=== PATIENT | female | born 1955 | race African-American/Black ===

== ENCOUNTER 2023-04-15 23:19 | Inpatient (IN) | payer MEDICARE, MEDICAID ==
[~2023-04-15] VITALS: Ht 162.6 cm; Wt 49.9 kg
[2023-04-15] MEDS ORDERED: RISPERIDONE 1MG TABLET PO ONE (23:30)
[2023-04-15] MEDS ORDERED: SODIUM CHLORIDE 0.9% 1,000 ML IV ONE (23:30)
[2023-04-15] MEDS ORDERED: ALPRAZOLAM 0.25 MG TABLET PO ONE (23:30)
[2023-04-16 00:02] LABS: BASOPHILS % 0.4 % (0.0-2.0); EOSINOPHILS % 2.6 % (0.0-5.0); HEMOGLOBIN. 9.6 g/dL (12.0-16.0); LYMPHOCYTES % 36.2 % (20.0-50.0); MEAN CORPUSCULAR HEMOGLOBIN 26.5 pg (28.0-32.0); MEAN CORPUSCULAR HGB CONC 31.9 g/dL (31.0-37.0); MEAN CORPUSCULAR VOLUME 83.2 fL (81.0-99.0); MEAN PLATELET VOLUME 6.8 fl (7.4-10.4); MONOCYTES % 8.9 % (2.0-8.0); NEUTROPHILS % 51.9 % (40.0-76.0); PLATELET 617 x1000/uL (130-400); RED BLOOD CELL COUNT 3.61 mill/uL (4.2-5.4); RED CELL DISTRIBUTION WIDTH 18.1 % (11.6-14.6); WHITE BLOOD COUNT 6.9 x1000/uL (4.5-11.0)
[2023-04-16 00:18] LABS: CHLORIDE 113 mEq/L (98-107); INDEX HEMOLYSI 1 (1-3); INDEX ICTERIC 1 (1-4); INDEX LIPEMIC 1 (1-3); POTASSIUM 3.6 mEq/L (3.5-5.1); SODIUM 142 mEq/L (136-145)
[2023-04-16 00:21] LABS: AMMONIA 13 uMol/L (<32)
[2023-04-16 00:24] LABS: ALANINE AMINOTRANSFERASE 10 IU/L (13-61); ALBUMIN 2.4 g/dL (3.4-5.0); ASPARTATE AMINOTRANSFERASE 10 IU/L (15-37); CALCIUM 8.4 mg/dL (8.5-10.1); CARBON DIOXIDE 26 mEq/L (21-32); ETHANOL BLOOD < 10 mg/dL (<10); GLUCOSE 86 mg/dL (70-105); UREA NITROGEN BLOOD 12 mg/dL (7-21)
[2023-04-16 00:28] LABS: ACETAMINOPHEN < 2 ug/mL (10-30); BILIRUBIN TOTAL 0.3 mg/dL (0.1-1.0); CREATINE KINASE 27 IU/L (26-192); CREATININE 0.4 mg/dL (0.6-1.3); PROTEIN TOTAL 6.7 g/dL (6.0-8.3)
[2023-04-16 00:44] LABS: TROPONIN I HIGH SENSITIVITY < 4 ng/L (<54)
[2023-04-16 08:00] VITALS: BP 95/51; PULSE 66; RESP 16; TEMP 96.6
[2023-04-16 08:30] VITALS: BP 95/51; PULSE 66; RESP 16; TEMP 96.6
[2023-04-16] MEDS ORDERED: IPRATROPIUM/ALBUTEROL 0.5-3(2.5)MG/3ML NEB HHN PRN (10:30)
[2023-04-16] MEDS ORDERED: CLONIDINE 0.1MG TABLET PO PRN (10:30)
[2023-04-16 12:00] VITALS: BP 101/37; PULSE 60; RESP 16; TEMP 96.5
[2023-04-16] MEDS: PANTOPRAZOLE SODIUM 40 MG/VIAL IV SCH (12:45)
[2023-04-16] MEDS: SODIUM CHLORIDE 0.9% 1,000 ML IV SCH (12:52)
[2023-04-16] MEDS: CEFTRIAXONE 1,000 MG in DEXTROSE 5% WATER 50 ML IV SCH (12:52)
[2023-04-16 16:00] VITALS: BP 90/35; PULSE 69; RESP 16; TEMP 97.1
[2023-04-16] MEDS ORDERED: CLON0.1T PO (18:28)
[2023-04-16] MEDS ORDERED: MULT-1146 MT (18:28)
[2023-04-16] MEDS ORDERED: RISP2 PO (18:28)
[2023-04-16] MEDS ORDERED: TOPUD PO (18:28)
[2023-04-16] MEDS ORDERED: LORA-250 MT (18:28)
[2023-04-16] MEDS ORDERED: ONDA4TAB11 PO (18:28)
[2023-04-16] MEDS ORDERED: ACETAMINOPHEN 325MG TABLET PO PRN (18:30)
[2023-04-16] MEDS ORDERED: ONDANSETRON 4MG ODT PO SCH (18:30)
[2023-04-16] MEDS ORDERED: LORAZEPAM 1MG TABLET PO PRN (18:30)
[2023-04-16] MEDS ORDERED: CLONIDINE 0.1MG TABLET PO SCH (18:30)
[2023-04-16 20:00] VITALS: TEMP 97.1
[2023-04-16] MEDS: RISPERIDONE 1MG TABLET PO SCH ×2 (21:00→21:05)
[2023-04-17] MEDS: SODIUM CHLORIDE 0.9% 1,000 ML IV SCH ×2 (00:34→12:45)
[2023-04-17 08:00] VITALS: BP 111/51; PULSE 63; RESP 18; TEMP 97.7
[2023-04-17] MEDS: ENOXAPARIN 40MG/0.4ML SYR SUBCUT SCH ×2 (09:00→10:02)
[2023-04-17] MEDS: PANTOPRAZOLE SODIUM 40 MG/VIAL IV SCH ×2 (09:00→10:01)
[2023-04-17] MEDS ORDERED: MEDICATION NOT ON FORMULARY EA (Multivitamin (Multi Vitamin Daily) 1 TAB) MT SCH (09:00)
[2023-04-17] MEDS: RISPERIDONE 1MG TABLET PO SCH ×2 (10:01→20:51)
[2023-04-17] MEDS: MULTIVITAMINS,THER W-MINERALS TABLET PO SCH (10:01)
[2023-04-17 12:00] VITALS: BP 101/52; PULSE 71; RESP 18; TEMP 97.9
[2023-04-17] MEDS: CEFTRIAXONE 1,000 MG in DEXTROSE 5% WATER 50 ML IV SCH (12:45)
[2023-04-17 16:00] VITALS: BP 99/55; PULSE 63; RESP 18; TEMP 97.4
[2023-04-17 20:00] VITALS: BP 125/43; PULSE 70; RESP 16; TEMP 97.1
[2023-04-18] VITALS: BP 106/43; PULSE 50; RESP 16; TEMP 97.3
[2023-04-18] MEDS: SODIUM CHLORIDE 0.9% 1,000 ML IV SCH ×2 (02:10→15:42)
[2023-04-18 04:00] VITALS: BP 121/64; PULSE 66; RESP 18; TEMP 97.1
[2023-04-18 08:00] VITALS: BP 138/74; PULSE 61; RESP 16; TEMP 96.8
[2023-04-18] MEDS: ENOXAPARIN 40MG/0.4ML SYR SUBCUT SCH (08:32)
[2023-04-18] MEDS: MULTIVITAMINS,THER W-MINERALS TABLET PO SCH (08:32)
[2023-04-18] MEDS: PANTOPRAZOLE SODIUM 40 MG/VIAL IV SCH (08:32)
[2023-04-18] MEDS: RISPERIDONE 1MG TABLET PO SCH ×2 (08:35→20:39)
[2023-04-18 08:38] LABS: BASOPHILS % 0.2 % (0.0-2.0); EOSINOPHILS % 1.2 % (0.0-5.0); HEMATOCRIT. 36.5 % (36.0-48.0); HEMOGLOBIN. 11.5 g/dL (12.0-16.0); LYMPHOCYTES % 20.7 % (20.0-50.0); MEAN CORPUSCULAR HEMOGLOBIN 27.1 pg (28.0-32.0); MEAN CORPUSCULAR HGB CONC 31.5 g/dL (31.0-37.0); MEAN PLATELET VOLUME 8.5 fl (7.4-10.4); MONOCYTES % 7.3 % (2.0-8.0); NEUTROPHILS % 70.6 % (40.0-76.0); PLATELET 318 x1000/uL (130-400); RED BLOOD CELL COUNT 4.24 mill/uL (4.2-5.4); RED CELL DISTRIBUTION WIDTH 17.9 % (11.6-14.6); WHITE BLOOD COUNT 6.6 x1000/uL (4.5-11.0)
[2023-04-18 09:12] LABS: CALCIUM 8.3 mg/dL (8.5-10.1); CARBON DIOXIDE 23 mEq/L (21-32); CHLORIDE 112 mEq/L (98-107); CREATININE 0.4 mg/dL (0.6-1.3); GLUCOSE 71 mg/dL (70-105); INDEX HEMOLYSI 1 (1-3); INDEX ICTERIC 1 (1-4); INDEX LIPEMIC 1 (1-3); POTASSIUM 3.5 mEq/L (3.5-5.1); SODIUM 140 mEq/L (136-145)
[2023-04-18 09:18] LABS: UREA NITROGEN BLOOD 6 mg/dL (7-21)
[2023-04-18] MEDS: CEFTRIAXONE 1,000 MG in DEXTROSE 5% WATER 50 ML IV SCH (11:37)
[2023-04-18 12:00] VITALS: BP 108/75; PULSE 53; RESP 15; TEMP 97
[2023-04-18 16:00] VITALS: BP 119/56; PULSE 78; RESP 17; TEMP 97.6
[2023-04-18 20:00] VITALS: BP 115/83; PULSE 74; RESP 16; TEMP 97.3
[2023-04-19] VITALS: BP 123/52; PULSE 69; RESP 16; TEMP 97.7
[2023-04-19 04:00] VITALS: BP 136/57; PULSE 66; RESP 16; TEMP 98.1
[2023-04-19] MEDS: SODIUM CHLORIDE 0.9% 1,000 ML IV SCH (06:10)
[2023-04-19 08:00] VITALS: BP 135/67; PULSE 66; RESP 18; TEMP 98
[2023-04-19] MEDS: MULTIVITAMINS,THER W-MINERALS TABLET PO SCH (08:47)
[2023-04-19] MEDS: RISPERIDONE 1MG TABLET PO SCH (08:47)
[2023-04-19] MEDS: PANTOPRAZOLE SODIUM 40 MG/VIAL IV SCH (08:47)
[2023-04-19] MEDS: ENOXAPARIN 40MG/0.4ML SYR SUBCUT SCH ×2 (08:48→09:00)
[2023-04-19 12:00] VITALS: BP 129/76; PULSE 67; RESP 18; TEMP 97
[2023-04-19] MEDS: CEFTRIAXONE 1,000 MG in DEXTROSE 5% WATER 50 ML IV SCH (12:27)
[2023-04-19 12:53] VITALS: BP 129/76; PULSE 67; TEMP 97; O2SAT 96
== END 2023-04-19 15:10 | DRG 52 ==
LOC: ER 23:19 → MICUSO 04-16 03:09 → EDBEDREQTM 04-16 03:14 → EDBEDREQ 04-16 03:14 → 8WST 04-16 08:15
PROVIDERS: ADMIT Internal Medicine; ATTEND Internal Medicine
DX: G93.41 Metabolic encephalopathy (principal); N17.9 Acute kidney failure, unspecified; L89.156 Pressure-induced deep tissue damage of sacral region; E46 Unspecified protein-calorie malnutrition; T81.30XA Disruption of wound, unspecified, initial encounter; F31.9 Bipolar disorder, unspecified; F20.9 Schizophrenia, unspecified; I10 Essential (primary) hypertension; J44.9 Chronic obstructive pulmonary disease, unspecified; Y84.8 Other medical procedures as the cause of abnormal reaction of the patient, or of later complication, without mention of misadventure at the time of the procedure; Y92.89 Other specified places as the place of occurrence of the external cause; D64.9 Anemia, unspecified; R62.7 Adult failure to thrive; Z68.1 Body mass index [BMI] 19.9 or less, adult
CPT/HCPCS: 36415; 71045; 80048; 80053; 80307; 80320; 80329; 82140; 82550; 82962; 83605; 84443; 84484; 85025; 99285; C9113; J0696; J1650; J7030; J7060; G0480

== ENCOUNTER 2024-01-10 10:01 | Inpatient (IN) | payer MEDICARE, MEDICAID ==
[~2024-01-10] VITALS: Ht 167.6 cm; Wt 58.5 kg
[~2024-01-10 10:01] MED LIST: CLON0.1T PO; LORA-250 MT; MULT-1146 MT; ONDA4TAB11 PO; RISP2 PO; TOPUD PO
[2024-01-10] MEDS ORDERED: VANCOMYCIN 1G PREMIX 200 ML IV ONE (11:15)
[2024-01-10] MEDS: PIPERACILLIN/TAZO 3.375G/50ML 50 ML IV ONE (11:44)
[2024-01-10] MEDS: SODIUM CHLORIDE 0.9% 1000ML BAG (SEPSIS BOLUS) IV ONE (11:44)
[2024-01-10 11:52] LABS: CHLORIDE 105 mEq/L (98-107); POTASSIUM 4.3 mEq/L (3.5-5.1); SODIUM 139 mEq/L (136-145)
[2024-01-10 11:53] LABS: CARBON DIOXIDE 29 mEq/L (21-32)
[2024-01-10 11:54] LABS: CALCIUM 8.9 mg/dL (8.7-10.4)
[2024-01-10 11:55] LABS: BASOPHILS % 0.2 % (0.0-2.0); EOSINOPHILS % 6.5 % (0.0-5.0); HEMATOCRIT. 31.7 % (36.0-48.0); HEMOGLOBIN. 10.1 g/dL (12.0-16.0); LYMPHOCYTES % 28.6 % (20.0-50.0); MEAN CORPUSCULAR HEMOGLOBIN 27.2 pg (28.0-32.0); MEAN CORPUSCULAR HGB CONC 31.8 g/dL (31.0-37.0); MEAN CORPUSCULAR VOLUME 85.5 fL (81.0-99.0); MEAN PLATELET VOLUME 7.2 fl (7.4-10.4); MONOCYTES % 13.2 % (2.0-8.0); NEUTROPHILS % 51.5 % (40.0-76.0); PLATELET 370 x1000/uL (130-400); RED BLOOD CELL COUNT 3.71 mill/uL (4.2-5.4); RED CELL DISTRIBUTION WIDTH 17.5 % (11.6-14.6); WHITE BLOOD COUNT 5.7 x1000/uL (4.5-11.0)
[2024-01-10 11:58] LABS: CREATININE 0.4 mg/dL (0.6-1.0); GLUCOSE 79 mg/dL (70-105)
[2024-01-10 11:59] LABS: UREA NITROGEN BLOOD 5 mg/dL (9-23)
[2024-01-10] MEDS ORDERED: DIPHENHYDRAMINE 50MG/ML VIAL IV ONE (12:00)
[2024-01-10 12:01] LABS: ALANINE AMINOTRANSFERASE 8 IU/L (10-49); ALBUMIN 3.6 g/dL (3.2-4.8); ASPARTATE AMINOTRANSFERASE 13 IU/L (<34); BILIRUBIN TOTAL 0.2 mg/dL (0.1-1.0); PROTEIN TOTAL 6.4 g/dL (6.0-8.3)
[2024-01-10 12:03] LABS: PROTHROMBIN TIME 10.9 sec (9.6-11.0)
[2024-01-10 12:07] LABS: BILIRUBIN DIRECT < 0.1 mg/dL (<=3.0); TROPONIN I HIGH SENSITIVITY < 4 ng/L (3.0-34)
[2024-01-10] MEDS: LINEZOLID 600 MG PREMIX 300 ML IV SCH (12:30)
[2024-01-10] MEDS: MORPHINE SULFATE 4 MG/ML INJ (FOR IV/IM USE) IV ONE (12:59)
[2024-01-11 01:00] VITALS: BP 132/64; PULSE 50; RESP 18; TEMP 97.4
[2024-01-11] MEDS ORDERED: QUET25TA PO (04:05)
[2024-01-11] MEDS ORDERED: PANT40TA51 PO (04:05)
[2024-01-11] MEDS ORDERED: MIDO10TA PO (04:05)
[2024-01-11] MEDS ORDERED: HYDR-4001 MT (04:08)
[2024-01-11 04:09] LABS: CLARITY URINE CLEAR (CLEAR); COLOR URINE YELLOW (YELLOW); GLUCOSE URINE NEGATIVE (NEGATIVE); KETONES URINE NEGATIVE (NEGATIVE); LEUKOCYTE ESTERASE URINE NEGATIVE (NEGATIVE); NITRITE URINE NEGATIVE (NEGATIVE); OCCULT BLOOD URINE NEGATIVE (NEGATIVE); PROTEIN URINE NEGATIVE (NEGATIVE); SPECIFIC GRAVITY URINE 1.014 (1.005-1.030)
[2024-01-11 08:00] VITALS: BP 136/60; PULSE 59; RESP 20; TEMP 97.6
[2024-01-11] MEDS: CEFTRIAXONE 1GM/50ML 50 ML IV SCH (08:11)
[2024-01-11] MEDS: SODIUM CHLORIDE 0.9% 1,000 ML IV SCH (08:11)
[2024-01-11 10:41] LABS: CARBON DIOXIDE 27 mEq/L (21-32); CHLORIDE 105 mEq/L (98-107); SODIUM 139 mEq/L (136-145)
[2024-01-11 10:43] LABS: CALCIUM 9.1 mg/dL (8.7-10.4)
[2024-01-11 10:47] LABS: CREATININE 0.5 mg/dL (0.6-1.0); GLUCOSE 84 mg/dL (70-105); HEMATOCRIT 34.4 % (36.0-48.0); HEMOGLOBIN 10.8 g/dL (12.0-16.0); MEAN CORPUSCULAR HEMOGLOBIN 27.2 pg (28.0-32.0); MEAN CORPUSCULAR HGB CONC 31.5 g/dL (31.0-37.0); MEAN CORPUSCULAR VOLUME 86.4 fL (81.0-99.0); PLATELET 388 x1000/uL (130-400); RED BLOOD CELL COUNT 3.98 mill/uL (4.2-5.4); RED CELL DISTRIBUTION WIDTH 17.2 % (11.6-14.6); UREA NITROGEN BLOOD 6 mg/dL (9-23); WHITE BLOOD COUNT 4.7 x1000/uL (4.5-11.0)
[2024-01-11] MEDS: QUETIAPINE FUMARATE 25MG TABLET PO PRN (11:48)
[2024-01-11] MEDS: PANTOPRAZOLE 40MG DR TABLET PO SCH (11:48)
[2024-01-11 11:56] VITALS: BP 130/55; PULSE 75; RESP 18; TEMP 98.9
[2024-01-11 12:12] VITALS: BP 130/55; PULSE 75; RESP 18; TEMP 98.9
[2024-01-11] MEDS ORDERED: CEFEPIME 2GM IN DEXT 5% 100ML IV SCH (13:00)
[2024-01-11] MEDS: VANCOMYCIN 1.25GM PMX (XELLIA) 250 ML IV NR (15:12)
[2024-01-11 16:00] VITALS: BP 137/79; PULSE 59; RESP 18; TEMP 98.2
[2024-01-11] MEDS: CEFEPIME 2GM/100ML 100 ML IV SCH (17:20)
[2024-01-11 20:00] VITALS: BP 98/55; PULSE 82; RESP 19; TEMP 97.8
[2024-01-11] MEDS ORDERED: IPRATROPIUM/ALBUTEROL 0.5-3(2.5)MG/3ML NEB HHN PRN (21:15)
[2024-01-12 00:07] VITALS: BP 110/66; PULSE 83; RESP 19; TEMP 97.5
[2024-01-12 04:00] VITALS: BP 140/86; PULSE 72; RESP 18; TEMP 97.8
[2024-01-12 08:00] VITALS: BP 96/56; PULSE 71; RESP 18; TEMP 97.4
[2024-01-12] MEDS: PANTOPRAZOLE 40MG DR TABLET PO SCH (08:42)
[2024-01-12 12:11] VITALS: BP 98/56; PULSE 71; RESP 18; TEMP 97.7
[2024-01-12] MEDS: VANCOMYCIN 1.25GM PMX (XELLIA) 250 ML IV SCH (13:40)
[2024-01-12] MEDS ORDERED: ACETAMINOPHEN 325MG TABLET PO PRN (15:30)
[2024-01-12] MEDS: ENOXAPARIN 40MG/0.4ML SYR SUBCUT NR (16:07)
[2024-01-12 16:30] VITALS: BP 104/60; PULSE 75; RESP 18; TEMP 97
[2024-01-12 20:00] VITALS: BP 107/60; PULSE 74; RESP 16; TEMP 97.8
[2024-01-12] MEDS ORDERED: DIPHENHYDRAMINE 50MG CAPSULE PO PRN (21:45)
[2024-01-12] MEDS: ACETAMINOPHEN 325MG TABLET PO PRN (21:52)
[2024-01-12] MEDS: DIPHENHYDRAMINE 50MG/ML VIAL IV PRN (21:59)
[2024-01-13 00:12] VITALS: BP 99/54; PULSE 67; RESP 19; TEMP 97.5
[2024-01-13 04:00] VITALS: BP 99/45; PULSE 61; RESP 19; TEMP 97.1
[2024-01-13 08:00] VITALS: BP 122/71; PULSE 73; RESP 20; TEMP 97.2
[2024-01-13 12:00] VITALS: BP 114/65; PULSE 58; RESP 18; TEMP 97.7
[2024-01-13] MEDS ORDERED: LIDOCAINE HCL 1% 10 MG/ML 10ML VIAL ONE (13:25)
[2024-01-13] MEDS: ASCORBIC ACID 500 MG TABLET PO SCH (14:02)
[2024-01-13] MEDS: MULTIVITAMINS,THER W-MINERALS TABLET PO SCH (14:02)
[2024-01-13] MEDS: ZINC SULFATE 220 MG ( 50 ) CAPSULE PO SCH (14:02)
[2024-01-13 16:00] VITALS: BP 13/54; PULSE 68; RESP 18; TEMP 97.5
[2024-01-13 20:00] VITALS: BP 95/61; PULSE 68; RESP 18; TEMP 97.4
[2024-01-14] VITALS: BP 110/54; PULSE 68; RESP 18; TEMP 97.2
[2024-01-14 04:01] VITALS: BP 101/52; PULSE 94; RESP 18; TEMP 97.3
[2024-01-14 08:00] VITALS: BP 122/67; PULSE 65; RESP 18; TEMP 97.4
[2024-01-14] MEDS: FAMOTIDINE 20MG TABLET PO SCH (09:00)
[2024-01-14 12:00] VITALS: BP 120/65; PULSE 61; RESP 18; TEMP 97.4
[2024-01-14 14:23] VITALS: BP 120/65; PULSE 61; TEMP 97.9; O2SAT 100
[2024-01-14 16:00] VITALS: BP 107/72; PULSE 70; RESP 20; TEMP 97.3
== END 2024-01-14 15:30 | DRG 349 ==
LOC: ER 10:01 → 7WST 16:24 → EDBEDREQTM 16:30 → EDBEDREQ 16:30
PROVIDERS: ADMIT Internal Medicine; ATTEND Internal Medicine
PROC: 0S9B3ZZ Drainage of Left Hip Joint, Percutaneous Approach (ICD-10-PCS; principal; 2024-01-13)
DX: T84.52XA Infection and inflammatory reaction due to internal left hip prosthesis, initial encounter (principal); L02.416 Cutaneous abscess of left lower limb; F20.9 Schizophrenia, unspecified; I10 Essential (primary) hypertension; J44.9 Chronic obstructive pulmonary disease, unspecified; I73.9 Peripheral vascular disease, unspecified; F31.9 Bipolar disorder, unspecified; J44.89 Other specified chronic obstructive pulmonary disease; Z96.642 Presence of left artificial hip joint; Y92.89 Other specified places as the place of occurrence of the external cause; Z87.39 Personal history of other diseases of the musculoskeletal system and connective tissue; Z86.59 Personal history of other mental and behavioral disorders; Z88.6 Allergy status to analgesic agent
CPT/HCPCS: 20611; 36415; 71045; 72192; 76942; 80048; 80076; 81003; 83605; 84145; 84484; 85025; 85027; 93005; 99285; J0692; J0696; J1200; J1650; J2020; J2270; J2543; J3370; J3490; J7030